=== PATIENT | male | born 1985 | race Caucasian/White ===

== ENCOUNTER 2019-12-12 15:18 | Outpatient (CLI) | payer OTHER ==
[2019-12-12] MEDS ORDERED: NO HOME MEDS (15:27)
== END 2019-12-12 23:59 | disposition home or self-care (01) ==
LOC: PRE-OP 15:18 → EDSTATUS 12-19 13:30
PROVIDERS: ATTEND Orthopaedic Surgery
DX: M19.211 Secondary osteoarthritis, right shoulder (principal); Z53.8 Procedure and treatment not carried out for other reasons

== ENCOUNTER 2020-01-30 08:09 | Day surgery (SDC) | payer OTHER ==
[2020-01-30] VITALS (17 sets, daily range): BP systolic 109–160; BP diastolic 54–91
[~2020-01-30] VITALS: Ht 180.3 cm; Wt 112.4 kg
[~2020-01-30 08:09] MED LIST: NO HOME MEDS; famotidine 20mg tablet PO ONE; ringers solution, lacted 1,000 ML IV SCH; vancomycin 1,500 MG in NS 500ml IV soln IV ONE
[2020-01-30 11:24] LABS: BASOPHILS % (AUTO) 0.7 % (0-1); EOSINOPHILS # (AUTO) 0.2 X10'3 (0-0.9); EOSINOPHILS % (AUTO) 4.3 % (0-6); LYMPHOCYTES # (AUTO) 1.6 X10'3 (1.1-4.8); LYMPHOCYTES % (AUTO) 32.2 % (21-51); MEAN CORPUSCULAR VOLUME 88.2 FL (78-98); MEAN PLATELET VOLUME 8.9 FL (7.4-10.4); MONOCYTES # (AUTO) 0.4 X10'3 (0-0.9); MONOCYTES % (AUTO) 7.9 % (2-12); NEUTROPHILS # (AUTO) 2.8 X10'3 (1.8-7.7); NEUTROPHILS % (AUTO) 54.9 % (42-75); PRE OP HEMATOCRIT 44.4 % (42.0-52.0); PRE OP HEMOGLOBIN 15.1 g/dL (14.0-17.9); PRE OP PLATELET COUNT 211 X10'3 (140-440); RED BLOOD COUNT 5.03 X10'6 (4.70-6.10); RED CELL DISTRIBUTION WIDTH 13.3 % (11.5-14.5)
[2020-01-30 11:40] LABS: ALBUMIN 4.2 G/DL (3.4-5.0); ALBUMIN/GLOBULIN RATIO 1.1 (1.1-1.5); ALKALINE PHOSPHATASE 86 IU/L (46-116); BLOOD UREA NITROGEN 17 MG/DL (7-18); BUN/CREATININE RATIO 17.7 (5.4-32.0); CHLORIDE 107 MMOL/L (99-107); CREATININE 0.96 MG/DL (0.60-1.10); PRE OP ALT 34 U/L (30-65); PRE OP ANION GAP 7 (8-16); PRE OP AST 26 U/L (10-37); PRE OP BILIRUB, TOTAL 0.5 MG/DL (0.0-1.0); PRE OP GLUCOSE 107 MG/DL (70-104); PRE OP POTASSIUM 4.4 MMOL/L (3.4-5.1); PRE OP SODIUM 144 MMOL/L (135-145); TOTAL CARBON DIOXIDE 29.6 MMOL/L (24-32); TOTAL PROTEIN 7.9 G/DL (6.4-8.2); eGFR 89 ML/MIN
[2020-01-30] MEDS ORDERED: cloNIDine hcl/PF 100mcg/ml inj ONE (12:17)
[2020-01-30] MEDS ORDERED: ceFAZolin 1000mg inj ONE (12:17)
[2020-01-30] MEDS ORDERED: sevoflurane 250ml liquid IH ONE (12:22)
[2020-01-30] MEDS ORDERED: fentaNYL/PF 50MCG/1 ML 2ML syringe ONE (12:26)
[2020-01-30] MEDS ORDERED: midazolam 2 mg/2 ml injection ONE (12:26)
[2020-01-30] MEDS ORDERED: rocuronium 10mg/ml inj IV ONE (12:47)
[2020-01-30] MEDS ORDERED: propofol inj 20 ML IV ONE (12:47)
[2020-01-30] MEDS ORDERED: ROPIVAcaine 0.5% (5mg/ml) 30ml vial ONE (12:47)
[2020-01-30] MEDS ORDERED: LIDOcaine 1%/PF 5ML 10 MG/ML VIAL ONE (12:47)
[2020-01-30] MEDS ORDERED: dexamethasone sod phosphate 4mg/ml inj. ONE (12:47)
[2020-01-30] MEDS ORDERED: LIDOcaine 2% (20mg/ml) 5ml vial ONE (12:47)
[2020-01-30] MEDS ORDERED: ondansetron/PF 4mg/2ml inj ONE (12:48)
[2020-01-30] MEDS ORDERED: ringers solution, lacted 1,000 ML IV SCH (13:06)
[2020-01-30] MEDS ORDERED: morphine 4 MG/ML inj SYRINge IV PRN (13:10)
[2020-01-30] MEDS ORDERED: morphine 2 MG/ML inj. syringe IV PRN (13:10)
[2020-01-30] MEDS ORDERED: meperidine/PF 25mg/ml syringe IV PRN ×3 (13:10)
[2020-01-30] MEDS ORDERED: ketorolac trometh. 30mg/ml inj. IV ONE (13:10)
[2020-01-30] MEDS ORDERED: proCHLORperazine 10 MG/2 ml inj IV PRN (13:10)
[2020-01-30] MEDS ORDERED: ondansetron/PF 4mg/2ml inj IV PRN (13:10)
[2020-01-30] MEDS ORDERED: acetaminophen 1,000mg/100ml IV 100 ML IV ONE (13:15)
[2020-01-30] MEDS ORDERED: neostigmine methylsulfate 1 MG/ML 10ml vial ONE (14:39)
[2020-01-30] MEDS ORDERED: glycopyrrolate 0.2mg/ml inj ONE (14:39)
--- NOTE | 2020-01-30 14:47 | NUR ---
Received from OR via [facility], accompanied by Anesthesiologist DR FORRESTER and report given by Anesthesiologist. PT DROWSY, DENIES PAIN, RIGHT SHOULDER W/LAURENT CASTILLO CDI, RIGHT ARM IN IMMOBILIZER. Addendum: 01/30/20 at 1548 by Cristela Dumont RN Amended: Links added.
--- NOTE | 2020-01-30 17:17 | NUR ---
NAUSEA SUBSIDED, INSENTIVE SPIROMETER GIVEN TO ASSIST PT W/DEEP BREATHING EXERCISES, PT DEMONSTRATES PROPER TECHNIQUE. D/C INSTRUCTIONS GIVEN AND GONE OVER W/PT WHO VERBALIZED UNDERSTANDING, PT D/CD TO HOME VIA W/C TO PRIVATE VEHICLE W/O INCIDENT. Addendum: 01/30/20 at 1734 by Cristela Dumont RN Amended: Links added.
== END 2020-01-30 17:17 | disposition home or self-care (01) ==
LOC: PAS 08:09
PROVIDERS: ATTEND Orthopaedic Surgery
DX: S43.121A Dislocation of right acromioclavicular joint, 100%-200% displacement, initial encounter (principal); M19.011 Primary osteoarthritis, right shoulder; G89.18 Other acute postprocedural pain; Z88.1 Allergy status to other antibiotic agents; Z87.891 Personal history of nicotine dependence; Z98.52 Vasectomy status; X58.XXXA Exposure to other specified factors, initial encounter; Y93.89 Activity, other specified; Y92.89 Other specified places as the place of occurrence of the external cause; Y99.8 Other external cause status; Z11.59 Encounter for screening for other viral diseases
CPT/HCPCS: 23120; 23552; 36415; 64415; 80053; 85025; 87635; C1713; J0131; J0690; J0735; J1100; J2001; J2250; J2405; J2704; J2710; J3010; J3370; J7040; J7120; A4215; A4565; A4618; A7000; C1762; J2795; J3490